=== PATIENT | female | born 1950 | race Caucasian/White ===

== ENCOUNTER 2018-07-13 16:24 | Inpatient (IN) | payer MEDICARE, OTHER ==
[~2018-07-13] VITALS: Ht 152.4 cm; Wt 58.1 kg
[2018-07-13 19:30] VITALS: BP 136/76
--- NOTE | 2018-07-13 19:30 | NUR ---
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 ADMITTED ON 5149 FOR DTS/DTO. CAME TO THE UNIT AROUND 1930 VIA GURNEY, BROUGHT IN BY 2 EMT'S. PATIENT IS ADMITTED DUE TO HEARING COMMAND VOICES BUT DID NOT WANT TO DETAIL WHAT THEY TELL HER. PT. WAS FOUND NAKED IN POSITION ON FLOOR AFTER TAKING A 2 HOUR SHOWER AND STATED "I WANT TO " PATIENT ATTEMPTED TO STAB ER STAFF WITH SYRINGE. PLACED PATIENT IN BED COMFORTABLY. PATIENT SHOWS NO S/SX OF ANY DISTRESS, RESPIRATION EVEN, BREATHING PATTERN NON-LABORED, DENIES PAIN OR DISCOMFORT AT THIS TIME. UPON FACE TO FACE ASSESSMENT PATIENT IS ALERT, ORIENTED X2-3, COOPERATIVE, GETS EASILY IRRITABLE, GUARDED, DENIES SI/HI OR HALLUCINATIONS AT THIS TIME. BELONGINGS WERE INVENTORIED AND CHECKED FOR CONTRABAND. ORDERS WERE OBTAINED FROM DR. WIGGINS, AND UNDER THE MEDICAL CARE OF DR. DEL VALLE. ESTEVAN GALVAN REGARDING PT'S ADMISSION, AWAITING FOR CALL BACK. SKIN ASSESSMENT DONE. BED LOCKED AND PLACED ON LOWEST POSITION TO MAINTAIN SAFETY. WILL CONTINUE TO MONITOR Q 15 MINS. FOR SAFETY AND BEHAVIOR. Addendum: 07/14/18 at 0624 by JAMEEL WOLFE RN SPOKE WITH DR. CORREA AND NOTIFIED OF PT'S ADMISSION.
[2018-07-13 20:00] VITALS: BP 136/76
[2018-07-13] MEDS ORDERED: ACETAMINOPHEN 325 MG TABLET PO PRN (20:30)
[2018-07-13] MEDS ORDERED: MAGNESIUM HYDROXIDE 30 ML UDC PO PRN (20:30)
[2018-07-13] MEDS ORDERED: MAG HYDROX/AL HYDROX/SIMETH 30 ML UDC PO PRN (20:30)
[2018-07-13] MEDS ORDERED: TEMAZEPAM 7.5 MG CAPSULE PO PRN (20:30)
[2018-07-13] MEDS ORDERED: LORAZEPAM 0.5 MG TABLET PO PRN (20:30)
[2018-07-13] MEDS ORDERED: QUET25TA PO (23:27)
[2018-07-13] MEDS ORDERED: LISI-607 PO (23:27)
[2018-07-13] MEDS ORDERED: RANI300T4 PO (23:27)
[2018-07-13] MEDS ORDERED: OMEG-72 PO (23:27)
[2018-07-13] MEDS ORDERED: CYCL5TAB PO (23:27)
[2018-07-13] MEDS ORDERED: ATOR10TA PO (23:27)
[2018-07-14 07:22] LABS: CHOLESTEROL 143 mg/dL (<200); HDL CHOLESTEROL 64 mg/dL (40-60); LDL 45 mg/dL (0-99); TRIGLYCERIDES 154 mg/dL (30-150)
[2018-07-14 07:26] LABS: BILIRUBIN,TOTAL 0.3 mg/dL (0.2-1.0); CALCIUM, SERUM 8.6 mg/dL (8.5-10.1); CREATININE 0.5 mg/dL (0.6-1.3); POTASSIUM 3.4 mmol/L (3.5-5.1); TOTAL PROTEIN, SERUM 5.9 g/dL (6.4-8.2)
[2018-07-14 08:00] VITALS: BP 108/58
[2018-07-14] MEDS ORDERED: OMEG10006 PO (08:12)
[2018-07-14] MEDS ORDERED: POTASSIUM CHLORIDE 20 MEQ TAB.PRT.SR PO SCH (11:00)
--- NOTE | 2018-07-14 13:43 | NUR ---
SW called the pt's son and DPOA, Huber ([phone]), and discussed the pt's current conditions as well as an initial discharge plan. Pt's son stated that they would want the pt home if she no longer endorses auditory hallucinations and if she shows improvement. NONA stated that a intermediate facility would most likely be a back up option at this time if the pt cannot return home.
--- NOTE | 2018-07-14 13:45 | NUR ---
Initial Discharge Plan: Pt currently resides at her home with her and her son/DPOA, Huber ([phone]), located at [address] [place] [address]; ([phone]). Per pt, she stated that she wanted to return to her home. The pt's DPOA, Huber ([phone]), stated that they would want the pt home but only once she shows improvement. NONA will work with the DPOA, pt and the MD regarding appropriate discharge planning. SW will form a safe and proper discharge plan.
[2018-07-14 16:00] VITALS: BP 140/84
[2018-07-14] MEDS: risperiDONE 1 MG TABLET PO SCH (16:46)
[2018-07-14 20:09] VITALS: BP 118/68
[2018-07-14] MEDS: FAMOTIDINE (20 MG) 20 MG TABLET PO SCH (20:54)
[2018-07-15 06:49] LABS: ALBUMIN 3.1 g/dL (3.4-5.0); BILIRUBIN,TOTAL 0.2 mg/dL (0.2-1.0); CALCIUM, SERUM 8.9 mg/dL (8.5-10.1); CREATININE 0.5 mg/dL (0.6-1.3); TOTAL PROTEIN, SERUM 6.2 g/dL (6.4-8.2)
--- NOTE | 2018-07-15 07:44 | NUR ---
RN INITIAL NOTES PT AWAKE AND AMBULATING, NAD. NO INDICATION OF ANY HALLUCINATIONS NOTED. WILL MONITOR
[2018-07-15 08:00] VITALS: BP 137/77
[2018-07-15] MEDS ORDERED: CYCLOBENZAPRINE 10 MG TABLET PO PRN (09:00)
[2018-07-15] MEDS ORDERED: Medication Not On Formulary EA (Omega-3 Fatty Acids (Omega-3) 1,000 MG) PO SCH (09:00)
[2018-07-15] MEDS: LISINOPRIL (5MG) 5 MG TABLET PO SCH (09:15)
[2018-07-15] MEDS: risperiDONE 1 MG TABLET PO SCH ×2 (09:16→17:24)
[2018-07-15] MEDS: FAMOTIDINE (20 MG) 20 MG TABLET PO SCH ×3 (09:16→22:41)
[2018-07-15] MEDS: ATORVASTATIN 10 MG TABLET PO SCH (09:16)
[2018-07-15 16:00] VITALS: BP 100/65
[2018-07-15 19:48] LABS: APPEARANCE,URINE CLEAR (CLEAR); BILIRUBIN,URINE NEGATIVE (NEGATIVE); BLOOD, URINE NEGATIVE Ery/uL (NEGATIVE); COLOR,URINE YELLOW (YELLOW); KETONES,URINE NEGATIVE (NEGATIVE); LEUKOCYTE ESTERASE ,URINE NEGATIVE (NEGATIVE); NITRITE, URINE NEGATIVE (NEGATIVE); PROTEIN,URINE NEGATIVE (NEGATIVE); UGLUCOSE NEGATIVE (NEGATIVE); UROBILINOGEN,URINE 0.2 EU/dL (0.2)
[2018-07-15 20:31] VITALS: BP 136/84
[2018-07-16 08:00] VITALS: BP 124/74
[2018-07-16] MEDS: risperiDONE 1 MG TABLET PO SCH ×2 (09:12→16:58)
[2018-07-16] MEDS: ATORVASTATIN 10 MG TABLET PO SCH (09:12)
[2018-07-16] MEDS: FAMOTIDINE (20 MG) 20 MG TABLET PO SCH ×2 (09:12→20:39)
[2018-07-16] MEDS: LISINOPRIL (5MG) 5 MG TABLET PO SCH (09:12)
[2018-07-16 16:00] VITALS: BP 97/58
--- NOTE | 2018-07-16 19:19 | NUR ---
GPS/RN OPENING NOTES RECEIVED PATIENT , MONITORING FOR ANY BEHAVIOR CHANGES, ENDORSEMENT RECEIVE FROM AM RN FOR ELEONORA.
[2018-07-16 20:00] VITALS: BP 129/60
[2018-07-16 20:21] VITALS: BP 129/60
[2018-07-17 08:00] VITALS: BP 124/75
[2018-07-17] MEDS: ATORVASTATIN 10 MG TABLET PO SCH (08:56)
[2018-07-17] MEDS: FAMOTIDINE (20 MG) 20 MG TABLET PO SCH ×2 (08:56→20:13)
[2018-07-17] MEDS: LISINOPRIL (5MG) 5 MG TABLET PO SCH (08:56)
[2018-07-17] MEDS: risperiDONE 1 MG TABLET PO SCH ×2 (08:57→16:58)
--- NOTE | 2018-07-17 09:40 | NUR ---
NONA met with the pt who stated that she believes she does need to be hospitalized any further. 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 SW informed her that she will be discharged early the following week and informed her to focus on her own well being. She stated that she is very alert and aware at the moment and that she believes she is fit to return home.
--- NOTE | 2018-07-17 11:10 | NUR ---
NONA called Vandana ([phone]), pt's daughter and DPOA, and discussed the pt's discharge disposition. He stated that he believes that the pt has improved significantly and can return back to her home. 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 He also stated that the pt would need referrals for psychiatrists and the SW stated that she would provide that upon discharge. Addendum: 07/17/18 at 1348 by LINDA CASTELLANO NOTE WAS ADMITTED FOR THE WRONG PT. Addendum: 07/17/18 at 1350 by LINDA CASTELLANO Pt's son Huber ([phone]) and the SW about this pt and the note is referring to this conversation.
--- NOTE | 2018-07-17 13:50 | NUR ---
NONA returned the call of the pt's son, Huber ([phone]), and informed him that the pt's psychiatrist will not be coming in today and will be covered by Dr. Gil. NONA stated that she would attempt to inform this doctor about the case and the pt's need to be discharged by tomorrow. NONA also stated that she would provide referrals for psychiatrists upon the pt's discharge.
[2018-07-17 16:01] VITALS: BP 102/61
--- NOTE | 2018-07-17 16:14 | NUR ---
NONA returned the call of the pt's son, Huber ([phone]), and informed him that the pt will be having a probable cause hearing tomorrow where the distribution operations manager will decided whether or not to release the pt. He stated that if the pt is released then he would want his cousin, Stormy, to pick her up. The SW stated that she would leave the list of medicare psychiatrists with her.
[2018-07-17 20:00] VITALS: BP 137/84
[2018-07-17] MEDS ORDERED: risperiDONE 1 MG TABLET PO SCH (22:00)
[2018-07-18 08:00] VITALS: BP 115/75
[2018-07-18] MEDS: ATORVASTATIN 10 MG TABLET PO SCH (08:31)
[2018-07-18] MEDS: FAMOTIDINE (20 MG) 20 MG TABLET PO SCH (08:31)
[2018-07-18 08:32] VITALS: BP 115/75
[2018-07-18] MEDS: LISINOPRIL (5MG) 5 MG TABLET PO SCH (08:32)
[2018-07-18] MEDS ORDERED: risperiDONE 0.25 MG TABLET PO SCH (09:00)
--- NOTE | 2018-07-18 13:29 | NUR ---
Pt's niece, Stormy ([phone]), called the SW and the SW informed her that the pt has a PC hearing today. She stated that she would be the one who would pick the pt up if the [place] administrative law judge releases her today.
--- NOTE | 2018-07-18 14:50 | NUR ---
NONA met with the pt's niece, Stormy ([phone]), and provided her with the list of psychiatrist referrals in the [place] area and informed her to give the list to the pt's son who will be setting up an appointment for the pt.
--- NOTE | 2018-07-18 15:45 | NUR ---
NONA called the pt's son and DPOA, Huber ([phone]), and informed him that the pt will be discharged today due to the court releasing her. NONA stated that she provided the pt's niece with the list of psychiatrists as well.
--- NOTE | 2018-07-18 15:46 | NUR ---
Discharge Note: Pt was discharged home located at [address] [place] [id number]; ([phone]). Pt was picked up by the pts niece, Stormy ([phone]), around 4pm. Upon discharge, the pt appeared to be in a euthymic mood and presented with a calm affect. 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 Pt was provided with psychiatrist referrals and was told to make an appointment within the first week of discharge. SW faxed over the discharge packet to [phone] for the [facility] in [place]. Pt was referred to psychiatrist, Dr. Trice Guillen, located at [address] [facility], [address], [place] [address]; and fax: and pt will follow up with her foster care worker, [place]. [place], [place] [address] [facility], [place] [address]; .
--- NOTE | 2018-07-18 16:30 | NUR ---
PT. WITH CERTIFICATION REVIEW HEARING WITH THE HEARING REFEREE, ADVOCATE AND HOSPITAL STAFF. THE PATIENT, AFTER TALKING WITH THE ADVOCATE, HAS DECIDED TO BE PRESENT AT THE CERTIFICATION REVIEW HEARING AND HER NIECE ARMAAN SALDANA (NIECE) ALSO ATTENDED. AFTER CONSIDERING ALL THE EVIDENCE PRESENTED, THE HEARING REFEREE FINDS THAT: THERE IS NOT PROBABLE CAUSE TO BELIEVE THAT THE PERSON, A RESULT OF A MENTAL DISORDER IS: A DANGER TO SELF, A DANGER TO OTHERS OR GRAVELY DISABLED. THE MUST BE RELEASED OR REMAIN AT THE FACILITY ON VOLUNTARILY BASIS.
--- NOTE | 2018-07-18 16:37 | NUR ---
GPS CRIME LAB ANALYST NOTE: PT DISCHARGE TO [address] [place] [phone] PICKED UP BY THE PT JONNY . DR WIGGINS IN THE UNIT RX GIVEN AND EXPLAIN TO PT. PT DENIES SI/HI, VSS , DENIES VISUAL AND AUDITORY HALLUCINATION, A/O X3 , AMBULATORY, SELF CARE. SKIN CHECKED WITH DISCOLORATION ON BOTH FEED AND LOWER BACK , PT REFUSED PICTURES . ALL BELONGINGS AND VALUABLES RETURNED TO PT.
== END 2018-07-18 16:40 | disposition home or self-care (01) | DRG 885 ==
LOC: GPS 19:19
PROVIDERS: ADMIT Psychiatry & Neurology Psychiatry; ATTEND Psychiatry & Neurology Psychiatry
DX: F29 Unspecified psychosis not due to a substance or known physiological condition (principal); E44.1 Mild protein-calorie malnutrition; E78.5 Hyperlipidemia, unspecified; E87.6 Hypokalemia; I10 Essential (primary) hypertension; K21.9 Gastro-esophageal reflux disease without esophagitis; Z91.14 Patient's other noncompliance with medication regimen; I95.9 Hypotension, unspecified; E88.09 Other disorders of plasma-protein metabolism, not elsewhere classified; Z68.25 Body mass index [BMI] 25.0-25.9, adult; M62.838 Other muscle spasm
CPT/HCPCS: 36415; 80053-TC; 80061-TC; 81000-TC; 87081-TC